=== PATIENT | male | born 1945 | race Caucasian/White ===

== ENCOUNTER 2021-01-11 03:06 | Inpatient (IN) | payer MEDICARE ==
[2021-01-11 04:45] VITALS: BMI 36.3
[2021-01-11] MEDS ORDERED: Dextrose 50% Abboject 50 ML SYRINGE SLOW IVP PRN (05:17)
[2021-01-11] MEDS ORDERED: Ondansetron PF 4 MG/2 ML Vial IVP PRN (05:17)
[2021-01-11] MEDS ORDERED: Ondansetron ODT 4 MG TAB PO PRN (05:17)
[2021-01-11] MEDS ORDERED: HumaLOG 300 UNITS/3 ML VIAL SC PRN (05:17)
[2021-01-11] MEDS ORDERED: Acetaminophen 325 MG TAB PO PRN (05:17)
[2021-01-11] MEDS ORDERED: Insulin Regular 300 UNITS/3 ML VIAL SC PRN (05:17)
[2021-01-11] MEDS ORDERED: Dextrose 5% in Water 1,000 ML IV PRN (05:17)
[2021-01-11] MEDS ORDERED: Metoprolol Tartrate 5 MG/5 ML VIAL IVP PRN (05:39)
[2021-01-11 06:06] LABS: #Basophils 0.1 thou/uL (0.0-0.2); #Eosinphils 0.1 thou/uL (0.0-0.7); #Lymphocytes 2.5 thou/uL (1.20-3.40); #Monocytes 2.4 thou/uL (0.11-0.59); #Neutrophils 12.6 thou/uL (1.40-6.50); %Basophils 0.4 % (0.0-1.0); %Eosinophils 0.6 % (0.0-10.0); %Lymphocytes 14.2 % (21.0-51.0); %Monocytes 13.4 % (0.0-10.0); %Neutrophils 71.4 % (42.0-75.0); Mean Corpuscular HGB CONC 33.3 g/dL (32.0-36.0); Mean Corpuscular Hemoglobin 33.7 pg (27.0-31.0); Mean Platelet Volume 7.9 fL (7.4-10.4); Platelet Count 294 thou/uL (130-400); RBC Distribution Width 12.1 % (11.5-14.5); Red Blood Cell (RBC) Count 4.46 mill/uL (4.70-6.10); White Blood Cell (WBC) Count 17.6 thou/uL (4.8-10.8)
[2021-01-11 06:30] LABS: ALT (SGPT) 28 U/L (8-55); AST (SGOT) 20 U/L (5-34); Alkaline Phosphatase 71 U/L (40-110); Anion Gap 13 mmol/L (10-20); BUN (Urea Nitrogen) 22 mg/dL (8.4-25.7); Bilirubin, Total 0.8 mg/dL (0.2-1.2); Calc. Creatinine Clearance 73 mL/min (70-130); Calcium 8.9 mg/dL (7.8-10.44); Carbon Dioxide 20 mmol/L (23-31); Chloride 107 mmol/L (98-107); Glucose 149 mg/dL (83-110); Potassium 4.4 mmol/L (3.5-5.1); Sodium 136 mmol/L (136-145)
[2021-01-11 06:33] LABS: Troponin I Less than 0.010 ng/mL (< 0.028)
[2021-01-11] MEDS: Mometasone 200 MCG/Formoterol 5 MCG 120 PUFF INHALER INH SCH ×2 (07:09→18:46)
[2021-01-11] MEDS ORDERED: Metoclopramide HCl 10 MG/2 ML VIAL IVP SCH (09:00)
[2021-01-11] MEDS ORDERED: GoLYTELY 4,000 ml Bottle PO SCH (09:00)
[2021-01-11] MEDS ORDERED: Ondansetron PF 4 MG/2 ML Vial IVP SCH (09:00)
[2021-01-11] MEDS ORDERED: PROPOFOL 200 MG/20 ML VIAL ONE (12:16)
[2021-01-11] MEDS ORDERED: Lidocaine 1% PF 5 ML VIAL ONE (12:16)
[2021-01-11] MEDS ORDERED: Promethazine HCl 25 MG/ML VIAL SLOW IVP PRN (13:00)
[2021-01-11] MEDS ORDERED: Promethazine HCl 25 MG/ML VIAL IM PRN (13:00)
[2021-01-11] MEDS ORDERED: Ondansetron HCl/PF 4 MG/2 ML Vial IVP PRN (13:00)
[2021-01-11] MEDS: FLUoxetine HCl 20 MG CAP PO SCH (14:14)
[2021-01-11] MEDS: Pantoprazole 40 MG VIAL IVP SCH (14:15)
[2021-01-11] MEDS ORDERED: Montelukast Sodium 10 mg Tablet PO SCH (21:00)
[2021-01-12 05:07] LABS: #Basophils 0.1 thou/uL (0.0-0.2); #Eosinphils 0.9 thou/uL (0.0-0.7); #Lymphocytes 2.3 thou/uL (1.20-3.40); #Monocytes 1.5 thou/uL (0.11-0.59); #Neutrophils 6.1 thou/uL (1.40-6.50); %Basophils 1.1 % (0.0-1.0); %Eosinophils 8.7 % (0.0-10.0); %Lymphocytes 21.1 % (21.0-51.0); %Monocytes 13.5 % (0.0-10.0); %Neutrophils 55.6 % (42.0-75.0); Hemoglobin 12.1 g/dL (14.0-18.0); Mean Corpuscular HGB CONC 33.5 g/dL (32.0-36.0); Mean Corpuscular Hemoglobin 33.8 pg (27.0-31.0); Platelet Count 229 thou/uL (130-400); RBC Distribution Width 12.1 % (11.5-14.5); Red Blood Cell (RBC) Count 3.59 mill/uL (4.70-6.10); White Blood Cell (WBC) Count 10.9 thou/uL (4.8-10.8)
[2021-01-12 05:28] LABS: Anion Gap 11 mmol/L (10-20); BUN (Urea Nitrogen) 16 mg/dL (8.4-25.7); Calc. Creatinine Clearance 96 mL/min (70-130); Calcium 8.4 mg/dL (7.8-10.44); Carbon Dioxide 23 mmol/L (23-31); Chloride 104 mmol/L (98-107); Glucose 112 mg/dL (83-110); Potassium 3.7 mmol/L (3.5-5.1); Sodium 134 mmol/L (136-145)
[2021-01-12] MEDS: Mometasone 200 MCG/Formoterol 5 MCG 120 PUFF INHALER INH SCH (07:10)
[2021-01-12] MEDS: FLUoxetine HCl 20 MG CAP PO SCH (08:32)
[2021-01-12] MEDS: Pantoprazole 40 MG VIAL IVP SCH (08:33)
[2021-01-12] MEDS ORDERED: Lisinopril 20 MG TAB PO SCH (09:00)
[2021-01-12] MEDS ORDERED: Dutasteride 0.5 MG CAP PO SCH (09:00)
[2021-01-12] MEDS ORDERED: OLANZapine 2.5 MG TAB PO SCH ×2 (09:00)
[2021-01-12] MEDS ORDERED: Metoprolol Tartrate 5 MG/5 ML VIAL IVP SCH (10:57)
[2021-01-12 11:49] VITALS: BP 103/69; TEMP 98.6
== END 2021-01-12 13:19 | disposition home or self-care (01) | DRG 921 ==
LOC: ERS 03:06 → 2NO 04:23
PROVIDERS: ADMIT Student in an Organized Health Care Education/Training Program; ATTEND Family Medicine
PROC: 0DJD8ZZ Inspection of Lower Intestinal Tract, Via Natural or Artificial Opening Endoscopic (ICD-10-PCS; principal; 2021-01-11)
DX: K91.840 Postprocedural hemorrhage of a digestive system organ or structure following a digestive system procedure (principal); Y84.8 Other medical procedures as the cause of abnormal reaction of the patient, or of later complication, without mention of misadventure at the time of the procedure; I48.0 Paroxysmal atrial fibrillation; E11.9 Type 2 diabetes mellitus without complications; I10 Essential (primary) hypertension; E78.5 Hyperlipidemia, unspecified; G47.33 Obstructive sleep apnea (adult) (pediatric); K64.4 Residual hemorrhoidal skin tags; K63.5 Polyp of colon; K64.8 Other hemorrhoids; Z86.010 Personal history of colon polyps; Z88.5 Allergy status to narcotic agent; Z79.899 Other long term (current) drug therapy; Z79.01 Long term (current) use of anticoagulants; Z79.51 Long term (current) use of inhaled steroids; Z90.49 Acquired absence of other specified parts of digestive tract
CPT/HCPCS: 36415; 36416; 80048; 80053; 84484; 85025; 86850; 86900; 86901; 93005; 93010; C9113; J2405; J2704